=== PATIENT | female | born 1975 | race Caucasian/White ===

== ENCOUNTER 2017-04-17 10:29 | Inpatient (IN) | payer OTHER ==
[2017-04-17 11:06] VITALS: BMI 29.2
--- NOTE | 2017-04-17 14:41 | HP ---
COWS - Scale Resting Pulse: 0= [place] 80 or Below Sweatin=Flushed/Facial Moisture Restless Observation: 1= Difficult to Sit Still Pupil Size: 0= Normal to Room Light Bone or Joint Aches: 2= Severe Diffuse Aches Runny Nose/ Eye Tearin= Runny Nose/Eyes GI Upset > 30mins: 2= Nausea/Diarrhea Tremor Observation: 2= Slight Tremor Visible Yawning Observation: 2= >3x During Session Anxiety or Irritability: 2=Irritable/Anxious Goose Flesh Skin: 0=Smooth Skin COWS Score: 15 CIWA Score - CIWA Score Nausea/Vomitin-Mild Nausea/No Vomiting Muscle Tremors: 4-Moderate,w/Arms Extend Anxiety: 3 Agitation: 4-Moderately Restless Paroxysmal Sweats: 3 Orientation: 0-Oriented Tacttile Disturbances: 0-None Auditory Disturbances: 0-None Visual Disturbances: 0-None Headache: 1-Very Mild CIWA-Ar Total Score: 16 Admission ROS BHS - HPI Chief Complaint: I am here to detox. Allergies/Adverse Reactions: Allergies Allergy/AdvReac Type Severity Reaction Status Date / Time No Known Allergies Allergy Verified 04/17/17 11:23 History of Present Illness: pt is a 41yr old female with a history of alcohol, xanax and heroin dependence seeking detox for treatment. Exam Limitations: No Limitations - Ebola screening Have you traveled outside of the country in the last 21 days: No Have you had contact with anyone from an Ebola affected area: No Have you been sick,other than usual withdrawal symptoms: No Do you have a fever: No - Review of Systems Constitutional: Chills, Diaphoresis, Loss of Appetite, Night Sweats, Changes in sleep EENT: reports: Tearing, Nose Congestion Respiratory: reports: No Symptoms reported Cardiac: reports: No Symptoms Reported GI: reports: Poor Appetite, Poor Fluid Intake : reports: No Symptoms Reported Musculoskeletal: reports: Back Pain Integumentary: reports: Flushing, Sweating Neuro: reports: Headache, Tingling, Tremors Endocrine: reports: Excessive Sweating, Flushing, Intolerance to Cold, Intolerance to Heat Hematology: reports: No Symptoms Reported Psychiatric: reports: Judgement Intact, Mood/Affect Appropiate, Orientated x3, Agitated, Anxious Other Systems: Reviewed and Negative Patient History - Patient Medical History Hx Anemia: No Hx Asthma: No Hx Chronic Obstructive Pulmonary Disease (COPD): No Hx Cancer: No Hx Cardiac Disorders: No Hx Congestive Heart Failure: No Hx Hypertension: No Hx Hypercholesterolemia: No Hx Pacemaker: No HX Cerebrovascular Accident: No Hx Seizures: No Hx Dementia: No Hx Diabetes: No Hx Gastrointestinal Disorders: No Hx Liver Disease: No Hx Genitourinary Disorders: No Hx Sexually Transmitted Disorders: No Hx Renal Disease (ESRD): No Hx Thyroid Disease: No Hx Human Immunodeficiency Virus (HIV): No (negative) Hx Hepatitis C: No (negative) Hx Depression: Yes Hx Suicide Attempt: No (denies) Hx Bipolar Disorder: No Hx Schizophrenia: No - Patient Surgical History Past Surgical History: No Hx Neurologic Surgery: No Hx Cataract Extraction: No Hx Cardiac Surgery: No Hx Lung Surgery: No Hx Breast Surgery: No Hx Breast Biopsy: No Hx Abdominal Surgery: No Hx Appendectomy: No Hx Cholecystectomy: No Hx Genitourinary Surgery: No Hx Section: No Hx Orthopedic Surgery: No Anesthesia Reaction: No - PPD History Previous Implant?: Yes Documented Results: Negative w/o proof Implanted On Prior R Admission?: Yes PPD to be Administered?: No - Reproductive History Patient is a Female of Child Bearing Age (11 -55 yrs old): Yes Last Menstrual Period: 04/14/17 Patient : No - Smoking Cessation Smoking history: Current every day smoker Have you smoked in the past 12 months: Yes Aproximately how many cigarettes per day: 20 Cigars Per Day: 0 Hx Chewing Tobacco Use: No Initiated information on smoking cessation: Yes 'Breaking Loose' booklet given: 04/17/17 - Substance & Tx. History Hx Alcohol Use: Yes Hx Substance Use: Yes Substance Use Type: Alcohol, Heroin, Opiates, Tranquilizers Hx Substance Use Treatment: Yes (last detox 2013 at [facility]) - Substances Abused Heroin Route: Injection Frequency: Daily Amount used: 15 bags Age of first use: 30 Date of Last Use: 04/17/17 Alcohol-wine Route: Oral Frequency: Daily Amount used: 2 pts. Age of first use: 15 Date of Last Use: 04/16/17 Xanax Route: Oral Frequency: Daily Amount used: 8 mg. Age of first use: 12 Date of Last Use: 04/16/17 Family Disease History - Family Disease History Family Disease History: Diabetes: Grandparent Admission Physical Exam BHS - Vital Signs Vital Signs: Vital Signs - 24 hr 04/17/17 11:03 Temperature 97.9 F Pulse Rate 68 Respiratory 20 Rate Blood Pressure 116/66 - Physical General Appearance: Yes: Appropriately Dressed, Moderate Distress, Tremorous, Irritable, Sweating, Anxious HEENTM: Yes: Hearing grossly Normal, Normal Voice, Nasal Congestion, Rhinorrhea Respiratory: Yes: Lungs Clear, Normal Breath Sounds, No Respiratory Distress Neck: Yes: No masses,lesions,Nodules Breast: Yes: Within Normal Limits Cardiology: Yes: Regular Rhythm, Regular Rate, S1, S2 Abdominal: Yes: Normal Bowel Sounds, Non Tender, Soft Genitourinary: Yes: Within Normal Limits Back: Yes: Normal Inspection Musculoskeletal: Yes: full range of Motion, Back pain Extremities: Yes: Normal Capillary Refill, Normal Inspection, Non-Tender, Tremors Neurological: Yes: Fully Oriented, Alert, Normal Response Integumentary: Yes: Normal Color, Diaphoresis, Track Andrew Lymphatic: Yes: Within Normal Limits - Diagnostic (1) Nicotine dependence Current Visit: Yes Status: Chronic (2) Alcohol dependence with uncomplicated withdrawal Current Visit: Yes Status: Chronic (3) Opioid dependence with withdrawal Current Visit: Yes Status: Chronic (4) Sedative, hypnotic or anxiolytic dependence with withdrawal, uncomplicated Current Visit: Yes Status: Chronic Cleared for Admission [facility] - Detox or Rehab [facility] Level of Care: Medically Managed Detox Regimen/Protocol: Methadone/Librium [facility] Breath Alcohol Content Breath Alcohol Content: 0 Urine Pregancy Test - Result Urine Test Results: Negative- NO Line Present Urine Drug Screen - Results Drug Screen Negative: No Urine Drug Screen Results: SULEMA-Cocaine, OPI-Opiates, BZO-Benzodiazepines, MTD- Methadone
[2017-04-17] MEDS ORDERED: MAGNESIUM CITRATE 300 ML BOTTLE PO PRN (14:42)
[2017-04-17] MEDS ORDERED: MENTHOL/PHENOL 1 EACH UD MM PRN (14:42)
[2017-04-17] MEDS ORDERED: P-EPHED 60MG/TRIPROLIDI 2.5MG TABLET PO PRN (14:42)
[2017-04-17] MEDS ORDERED: MAGNESIUM HYDROX 2400MG/30ML ORAL SUSPENSION 30 ML CUP PO PRN (14:42)
[2017-04-17] MEDS ORDERED: MAG HYDROX/AL HYDROX/SIMETH 30 ML UNIT-DOSE CUP PO PRN (14:42)
[2017-04-17] MEDS ORDERED: guaiFENesin/D-METHORPHAN HB 10 ML UNIT-DOSE CUPS PO PRN (14:42)
[2017-04-17] MEDS ORDERED: METHADONE HCL 10 MG TABLET (FOR DETOX USE ONLY) PO ONE ×2 (15:15→23:00)
[2017-04-17] MEDS ORDERED: chlordiazePOXIDE HCL 25 MG CAPSULE PO ONE (15:15)
[2017-04-17] MEDS: chlordiazePOXIDE HCL 25 MG CAPSULE PO SCH ×2 (17:55→22:16)
[2017-04-17] MEDS: NICOTINE POLACRILEX 4 MG GUM BC PRN (17:57)
[2017-04-17] MEDS: chlordiazePOXIDE HCL 25 MG CAPSULE PO PRN (19:14)
[2017-04-17] MEDS: THIAMINE HCL 100 MG TABLET (FP) PO SCH (22:16)
[2017-04-17] MEDS: diphenhydrAMINE HCL 50 MG CAPSULE PO PRN (22:16)
[2017-04-17] MEDS: LOPERAMIDE HCL 2 MG CAPSULE PO PRN (22:18)
[2017-04-18] MEDS: chlordiazePOXIDE HCL 25 MG CAPSULE PO PRN ×2 (03:42→12:22)
[2017-04-18] MEDS: hydrOXYzine PAMOATE 50 MG CAPSULE (FP) PO PRN ×2 (03:42→14:59)
[2017-04-18] MEDS: TRIMETHOBENZAMIDE HCL 200MG/2ML INJ IM PRN ×2 (05:38→19:17)
[2017-04-18] MEDS: chlordiazePOXIDE HCL 25 MG CAPSULE PO SCH ×4 (06:35→22:17)
--- NOTE | 2017-04-18 09:05 | CONSULT ---
[facility] Psychiatric Consult - Data Date of interview: 04/18/17 Admission source: [facility] Identifying data: This is 41 years old female with no mpsychiatric hospitalization histopry intoxciated with: Alcohol, Nicotine, Xanax, Cannabis and Opioids Substance Abuse History: - Smoking Cessation. Smoking history: Current every day smoker. Have you smoked in the past 12 months: Yes. Aproximately how many cigarettes per day: 20. Cigars Per Day: 0. Hx Chewing Tobacco Use: No. Initiated information on smoking cessation: Yes. 'Breaking Loose' booklet given : 04/17/17. - Substance & Tx. History. Hx Alcohol Use: Yes. Hx Substance Use : Yes. Substance Use Type: Alcohol, Heroin, Opiates, Tranquilizers. Hx Substance Use Treatment: Yes (last detox 2013 at [facility]). - Substances Abused. Heroin. Route: Injection. Frequency: Daily. Amount used: 15 bags. Age of first use: 30. Date of Last Use: 04/17/17. Alcohol-wine. Route: Oral. Frequency: Daily. Amount used: 2 pts. Age of first use: 15. Date of Last Use: 04/16/17. Xanax. Route: Oral. Frequency: Daily. Amount used: 8 mg. Age of first use: 12. Date of Last Use: 04/16/17 Medical History: History of MMTP Psychiatric History: PATIENT REPORTS HISTORY OF DEPRESSION, DENIES PSYCHIATRIOC HOSPITAQLIZATION HJIOSTORY, REPORTS NO MEDICATIONS TAKING PRIOR TO ADMISSION Physical/Sexual Abuse/Trauma History: Denies Additional Comment: [facility] Mental Status Exam - Mental Status Exam Alert and Oriented to: Person Cognitive Function: Fair Patient Appearance: Unkempt Mood: Sad Affect: Mood Congruent Patient Behavior: Sedated Speech Pattern: Delayed Voice Loudness: Mildly Soft/Quiet Thought Process: Circumstantial Thought Disorder: Being Controlled Hallucinations: Denies Suicidal Ideation: Denies Homicidal Ideation: Denies Insight/Judgement: Fair Sleep: Difficulty falling asleep Appetite: Fair Muscle strength/Tone: Mild Hypotonicity Gait/Station: Shuffling Additional Comments: [facility]. [facility] Psychiatric Findings - Problem List ([place] 1, 2,3) (1) Alcohol dependence with uncomplicated withdrawal Current Visit: Yes Status: Chronic (2) Nicotine dependence Current Visit: Yes Status: Chronic (3) Opioid dependence with withdrawal Current Visit: Yes Status: Chronic (4) Sedative, hypnotic or anxiolytic dependence with withdrawal, uncomplicated Current Visit: Yes Status: Chronic (5) depression Current Visit: No Status: Active (6) Cannabis dependence Current Visit: No Status: Acute (7) Substance induced mood disorder Current Visit: No Status: Acute (8) Substance-induced sleep disorder Current Visit: No Status: Acute (9) Opioid dependence Current Visit: No Status: Chronic (10) Sedative dependence Current Visit: No Status: Chronic - Initial Treatment Plan Initial Treatment Plan: Observation. [facility] Care Protocol
[2017-04-18] MEDS ORDERED: METHADONE HCL 10 MG TABLET (FOR DETOX USE ONLY) PO SCH (10:00)
--- NOTE | 2017-04-18 10:19 | PN ---
BHS COWS - Scale Resting Pulse: 0= [place] 80 or Below Sweatin=Flushed/Facial Moisture Restless Observation: 1= Difficult to Sit Still Pupil Size: 0= Normal to Room Light Bone or Joint Aches: 2= Severe Diffuse Aches Runny Nose/ Eye Tearin= Runny Nose/Eyes GI Upset > 30mins: 3= Vomiting/Diarrhea Tremor Observation of Outstretched Hands: 2= Slight Tremor Visible Yawning Observation: 2= >3x During Session Anxiety or Irritability: 2=Irritable/Anxious Goose Flesh Skin: 3=Piloerection COWS Score: 19 S Progress Note (SOAP) Subjective: nausea vomiting sweats interrupted sleep agitation anxiety irritable teary eyes Objective: 04/18/17 10:18 Vital Signs Temperature 97.4 F L 04/18/17 05:59 Pulse Rate 67 04/18/17 05:59 Respiratory Rate 18 04/18/17 05:59 Blood Pressure 125/78 04/18/17 05:59 O2 Sat by Pulse Oximetry (%) labs pending awake/alert ambulating no acute distress Assessment: 04/18/17 10:18 withdrawal sx Plan: continue detox increase fluids tigan IM prn reglan po
[2017-04-18] MEDS: PRENATAL VITAMINS W/ FOLIC ACID TABLET (FP) PO SCH (10:42)
[2017-04-18] MEDS: METOCLOPRAMIDE HCL 10 MG TABLET (FP) PO SCH ×3 (10:43→22:17)
[2017-04-18] MEDS: LOPERAMIDE HCL 2 MG CAPSULE PO PRN (10:43)
[2017-04-18] MEDS: NICOTINE 21 MG/24 HOURS TOPICAL PATCH TD SCH (10:45)
--- NOTE | 2017-04-18 10:45 | EKG ---
Test Reason : Blood Pressure : / mmHG Vent. Rate : 071 BPM Atrial Rate : 071 BPM P-R Int : 156 ms QRS Dur : 080 ms QT Int : 376 ms P-R-T Axes : 066 072 029 degrees QTc Int : 408 ms NORMAL SINUS RHYTHM WITH SINUS ARRHYTHMIA POSSIBLE LEFT ATRIAL ENLARGEMENT BORDERLINE ECG NO PREVIOUS ECGS AVAILABLE Confirmed by PALOMO GUSTAFSON MD ([id number]) on 04/18/2017 10:45:23 AM Referred By: Confirmed By:PALOMO GUSTAFSON MD
[2017-04-18] MEDS ORDERED: TRIMETHOBENZAMIDE HCL 200MG/2ML INJ IM ONE (13:00)
[2017-04-18] MEDS: IBUPROFEN 400 MG TABLET (FP) PO PRN (14:59)
[2017-04-18] MEDS: ACETAMINOPHEN 325 MG TABLET (FP) PO PRN (16:47)
[2017-04-18] MEDS ORDERED: chlordiazePOXIDE HCL 25 MG CAPSULE PO SCH (17:00)
[2017-04-18] MEDS: THIAMINE HCL 100 MG TABLET (FP) PO SCH (22:17)
[2017-04-18] MEDS: diphenhydrAMINE HCL 50 MG CAPSULE PO PRN (22:17)
[2017-04-19] MEDS: chlordiazePOXIDE HCL 25 MG CAPSULE PO PRN ×2 (00:48→17:37)
[2017-04-19] MEDS: diphenhydrAMINE HCL 50 MG CAPSULE PO PRN (00:48)
[2017-04-19] MEDS: TRIMETHOBENZAMIDE HCL 200MG/2ML INJ IM PRN (03:28)
[2017-04-19] MEDS: METOCLOPRAMIDE HCL 10 MG TABLET (FP) PO SCH ×4 (06:01→22:16)
[2017-04-19] MEDS: chlordiazePOXIDE HCL 25 MG CAPSULE PO SCH ×2 (06:01→10:57)
[2017-04-19] MEDS: IBUPROFEN 400 MG TABLET (FP) PO PRN ×2 (08:43→19:46)
--- NOTE | 2017-04-19 09:19 | PN ---
Psychiatric Progress Note Vital Signs: Vital Signs Period Temp Pulse Resp BP Sys/Daniels Pulse Ox Last 24 Hr 98.1 F-100.9 F 66-92 16-18 124-144/72-92 Date of Session: 04/19/17 Chief Complaint:: Insomnia HPI: Patient reports severe insomnia, reports taking prior to admission Seroquel 300mg po qhs forn insomnia with good response Current Medications: Active Medications Generic Name Dose Route Start Last Admin Trade Name Freq PRN Reason Stop Dose Admin Acetaminophen 650 mg 04/17/17 14:42 04/18/17 16:47 Tylenol - PO 650 mg Q4H PRN Administration FEVER OR PAIN Al Hydroxide/Mg Hydroxide 30 ml 04/17/17 14:42 Mylanta Oral Suspension - PO Q6H PRN DYSPEPSIA Chlordiazepoxide HCl 10 mg 04/20/17 17:00 Librium - PO 04/21/17 11:01 [id number] PATRICIA Chlordiazepoxide HCl 25 mg 04/18/17 15:27 04/19/17 00:48 Librium - PO 04/20/17 14:43 25 mg Q4H PRN Administration WITHDRAWAL(CONT SUBST) Chlordiazepoxide HCl 25 mg 04/18/17 17:00 04/19/17 06:01 Librium - PO 04/19/17 11:01 25 mg [id number] PATRICIA Administration Chlordiazepoxide HCl 15 mg 04/19/17 17:00 Librium - PO 04/20/17 11:01 [id number] PATRICIA Diphenhydramine HCl 50 mg 04/17/17 14:42 04/19/17 00:48 Benadryl - PO 50 mg HSMR1 PRN Administration INSOMNIA Eucalyptus/Menthol/Phenol/Sorbitol 1 each 04/17/17 14:42 Cepastat Lozenge - MM Q4H PRN SORE THROAT Guaifenesin 10 ml 04/17/17 14:42 Robitussin Dm - PO Q6H PRN COUGH Hydroxyzine Pamoate 50 mg 04/17/17 14:42 04/18/17 14:59 Vistaril - PO 50 mg Q4H PRN Administration AGITATION Ibuprofen 400 mg 04/17/17 14:42 04/19/17 08:43 Motrin - PO 400 mg Q6H PRN Administration SEVERE PAIN Loperamide HCl 4 mg 04/17/17 14:42 04/18/17 10:43 Imodium - PO 4 mg Q6H PRN Administration DIARRHEA Magnesium Citrate 300 ml 04/17/17 14:42 Citroma - PO Q48H PRN CONSTIPATION Magnesium Hydroxide 30 ml 04/17/17 14:42 Milk Of Magnesia - PO DAILY PRN CONSTIPATION Methadone HCl 10 mg 04/21/17 10:00 Dolophine - PO 04/21/17 10:01 DAILY PATRICIA Methadone HCl 15 mg 04/19/17 10:00 Dolophine - PO 04/20/17 10:01 DAILY PATRICIA Methadone HCl 5 mg 04/22/17 06:00 Dolophine - PO 04/22/17 06:01 DAILY@0600 PATRICIA Metoclopramide HCl 10 mg 04/18/17 11:00 04/19/17 06:01 Reglan - PO 10 mg ACHS PATRICIA Administration Nicotine 21 mg 04/18/17 10:00 04/18/17 10:45 Nicoderm Patch - TD 21 mg DAILY PATRICIA Administration Nicotine Polacrilex 4 mg 04/17/17 14:42 04/17/17 17:57 Nicorette Gum - BC 4 mg Q2H PRN Administration NICOTINE REPLACEMENT RX Multivit/Folic Acid/Iron 1 tab 04/18/17 10:00 04/18/17 10:42 Vitamins (Sjr) - PO 1 tab DAILY PATRICIA Administration Pseudoephedrine/Triprolidine 1 combo 04/17/17 14:42 Actifed - PO TID PRN NASAL CONGESTION Thiamine HCl 100 mg 04/17/17 22:00 04/18/17 22:17 Vitamin B1 - PO 100 mg HS PATRICIA Administration Trimethobenzamide HCl 200 mg 04/18/17 05:22 04/19/17 03:28 Tigan Injection - IM 200 mg Q8H PRN Administration NAUSEA Medication(s) Change(s): Seroquel 300mg po qhs Psychiatric Treatment Plan - Problem List (1) Alcohol dependence with uncomplicated withdrawal Current Visit: Yes (2) Nicotine dependence Current Visit: Yes (3) Opioid dependence with withdrawal Current Visit: Yes (4) Sedative, hypnotic or anxiolytic dependence with withdrawal, uncomplicated Current Visit: Yes (5) depression Current Visit: No (6) Cannabis dependence Current Visit: No (7) Substance induced mood disorder Current Visit: No (8) Substance-induced sleep disorder Current Visit: No (9) Opioid dependence Current Visit: No (10) Sedative dependence Current Visit: No
[2017-04-19 10:16] LABS: URINE APPEARANCE SLCLOUDY; URINE BILIRUBIN NEGATIVE (NEGATIVE); URINE BLOOD NEGATIVE (NEGATIVE); URINE COLOR YELLOW; URINE GLUCOSE (UA) NEGATIVE (NEGATIVE); URINE KETONE TRACE (NEGATIVE); URINE LEUK ESTERASE NEGATIVE (NEGATIVE); URINE NITRITE NEGATIVE (NEGATIVE); URINE PROTEIN NEGATIVE (NEGATIVE); URINE UROBILINOGEN NEGATIVE mg/dL (0.2-1.0)
[2017-04-19] MEDS: METHADONE HCL 5 MG TABLET (FOR DETOX USE ONLY) PO SCH (10:57)
[2017-04-19] MEDS: PRENATAL VITAMINS W/ FOLIC ACID TABLET (FP) PO SCH (10:57)
[2017-04-19] MEDS: NICOTINE 21 MG/24 HOURS TOPICAL PATCH TD SCH (10:58)
--- NOTE | 2017-04-19 12:30 | PN ---
S CIWA - CIWA Score Nausea/Vomitin Muscle Tremors: 4-Moderate,w/Arms Extend Anxiety: 4-Mod. Anxious/Guarded Agitation: 4-Moderately Restless Paroxysmal Sweats: 3 Orientation: 0-Oriented Tacttile Disturbances: 0-None Auditory Disturbances: 0-None Visual Disturbances: 0-None Headache: 0-None Present CIWA-Ar Total Score: 18 BHS COWS - Scale Resting Pulse: 0= [place] 80 or Below Sweatin= Chills/Flushing Restless Observation: 1= Difficult to Sit Still Pupil Size: 1= Pupils >than Normal Bone or Joint Aches: 1= Mild Discomfort Runny Nose/ Eye Tearin= Nasal Congestion GI Upset > 30mins: 2= Nausea/Diarrhea Tremor Observation of Outstretched Hands: 2= Slight Tremor Visible Yawning Observation: 1= 1-2x During Session Anxiety or Irritability: 2=Irritable/Anxious Goose Flesh Skin: 3=Piloerection COWS Score: 15 BHS Progress Note (SOAP) Subjective: nausea, sweat, interrupted sleep, anxiety, tremors Objective: 04/19/17 12:29 Vital Signs - 8 hr 04/19/17 04/19/17 06:51 10:19 Temperature 99.5 F 98.2 F Pulse Rate 66 64 Respiratory 16 18 Rate Blood Pressure 144/79 119/60 Laboratory Tests 04/19/17 07:00 Urine Color Yellow Urine Appearance Slcloudy Urine pH 5.0 Urine Protein Negative Urine Glucose (UA) Negative Urine Ketones Trace H Urine Blood Negative Urine Nitrite Negative Urine Bilirubin Negative Urine Urobilinogen Negative Ur Leukocyte Esterase Negative labs pending Assessment: 04/19/17 12:30 withdrawal sx Plan: cont detox
[2017-04-19] MEDS: CLOTRIMAZOLE 1% CREAM 15 GM TUBE TP SCH ×2 (12:59→22:17)
[2017-04-19] MEDS: ACETAMINOPHEN 325 MG TABLET (FP) PO PRN ×2 (13:46→21:07)
[2017-04-19] MEDS ORDERED: chlordiazePOXIDE 5 MG CAPSULE PO SCH (17:00)
[2017-04-19] MEDS: chlordiazePOXIDE 5 MG CAPSULE PO SCH ×2 (18:08→22:16)
[2017-04-19] MEDS: NICOTINE POLACRILEX 4 MG GUM BC PRN (19:46)
[2017-04-19] MEDS: hydrOXYzine PAMOATE 50 MG CAPSULE (FP) PO PRN (19:47)
[2017-04-19] MEDS: THIAMINE HCL 100 MG TABLET (FP) PO SCH (22:16)
[2017-04-19] MEDS: QUEtiapine FUMARATE 300 MG TABLET PO SCH (22:16)
[2017-04-20] MEDS: chlordiazePOXIDE 5 MG CAPSULE PO SCH ×2 (05:55→10:41)
[2017-04-20] MEDS: METOCLOPRAMIDE HCL 10 MG TABLET (FP) PO SCH ×4 (07:49→22:10)
[2017-04-20 09:51] LABS: BASOPHIL 0.4 % (0-2.0); EOSINOPHIL 0.1 % (0-4.5); MCH 31.1 pg (25.7-33.7); MCHC 34.1 g/dl (32.0-36.0); MEAN CELL VOLUME 91.3 fl (80-96); MEAN PLT VOLUME 7.2 fl (7.5-11.1); NEUTROPHILS 61.8 % (42.8-82.8); PLATELET COUNT 283 K/MM3 (134-434); RDW 13.5 % (11.6-15.6); WHITE BLOOD COUNT 9.7 K/mm3 (4.0-10.0)
--- NOTE | 2017-04-20 09:56 | PN ---
BHS Progress Note (SOAP) Subjective: nausea, sweats, interrupted sleep, anxiety, tremors Objective: 04/20/17 09:55 Vital Signs - 24 hr 04/19/17 04/19/17 04/19/17 10:19 14:20 20:27 Temperature 98.2 F 99.7 F H 98.1 F Pulse Rate 64 97 H 61 Respiratory 18 18 18 Rate Blood Pressure 119/60 110/87 110/69 04/19/17 04/20/17 04/20/17 21:34 00:30 03:30 Temperature 100.0 F H Pulse Rate 75 Respiratory 20 18 18 Rate Blood Pressure 150/74 Laboratory Tests 04/19/17 07:00 Urine Color Yellow Urine Appearance Slcloudy Urine pH 5.0 Ur Specific [place] 1.020 Urine Protein Negative Urine Glucose (UA) Negative Urine Ketones Trace H Urine Blood Negative Urine Nitrite Negative Urine Bilirubin Negative Urine Urobilinogen Negative Ur Leukocyte Esterase Negative labs pending Assessment: 04/20/17 09:56 withdrawal sx Plan: cont detox
[2017-04-20] MEDS: PRENATAL VITAMINS W/ FOLIC ACID TABLET (FP) PO SCH (10:41)
[2017-04-20] MEDS: METHADONE HCL 5 MG TABLET (FOR DETOX USE ONLY) PO SCH (10:42)
[2017-04-20] MEDS: CLOTRIMAZOLE 1% CREAM 15 GM TUBE TP SCH ×2 (10:42→22:12)
[2017-04-20] MEDS: NICOTINE 21 MG/24 HOURS TOPICAL PATCH TD SCH (10:42)
[2017-04-20] MEDS: hydrOXYzine PAMOATE 50 MG CAPSULE (FP) PO PRN (10:46)
[2017-04-20] MEDS: IBUPROFEN 400 MG TABLET (FP) PO PRN (10:46)
[2017-04-20 10:47] LABS: ALBUMIN 3.6 g/dl (3.4-5.0); ANION GAP 9 (8-16); CALCIUM 8.8 mg/dL (8.5-10.1); CO2 27 mmol/L (21-32); CREATININE 0.8 mg/dL (0.55-1.02); GLUCOSE,RANDOM 91 mg/dL (74-106); SGOT/AST 17 U/L (15-37); SGPT/ALT 19 U/L (12-78)
[2017-04-20 10:49] LABS: ALK PHOS 69 U/L (45-117); BILIRUBIN,TOTAL 0.7 mg/dL (0.2-1.0); TOT PROT 7.2 g/dl (6.4-8.2)
[2017-04-20] MEDS ORDERED: chlordiazePOXIDE HCL 10 MG CAPSULE PO SCH (17:00)
[2017-04-20] MEDS: chlordiazePOXIDE HCL 10 MG CAPSULE PO SCH ×2 (17:01→22:10)
[2017-04-20] MEDS: LOPERAMIDE HCL 2 MG CAPSULE PO PRN (19:26)
[2017-04-20] MEDS: QUEtiapine FUMARATE 300 MG TABLET PO SCH (22:10)
[2017-04-20] MEDS: THIAMINE HCL 100 MG TABLET (FP) PO SCH (22:10)
[2017-04-21] MEDS: chlordiazePOXIDE HCL 10 MG CAPSULE PO SCH ×2 (05:21→10:30)
[2017-04-21] MEDS: METOCLOPRAMIDE HCL 10 MG TABLET (FP) PO SCH ×4 (07:30→22:36)
[2017-04-21] MEDS ORDERED: METHADONE HCL 10 MG TABLET (FOR DETOX USE ONLY) PO SCH (10:00)
[2017-04-21] MEDS: PRENATAL VITAMINS W/ FOLIC ACID TABLET (FP) PO SCH (10:30)
[2017-04-21] MEDS: CLOTRIMAZOLE 1% CREAM 15 GM TUBE TP SCH ×2 (10:30→22:36)
[2017-04-21] MEDS: NICOTINE 21 MG/24 HOURS TOPICAL PATCH TD SCH (10:31)
--- NOTE | 2017-04-21 11:13 | PN ---
BHS Progress Note (SOAP) Subjective: shakes, chills, N/D back pain Objective: 04/21/17 11:12 Vital Signs - 8 hr 04/21/17 04/21/17 04/21/17 03:30 06:32 10:00 Temperature 97.6 F 98.1 F Pulse Rate 70 71 Respiratory 18 18 16 Rate Blood Pressure 101/57 140/74 Laboratory Last Values WBC 9.7 K/mm3 (4.0-10.0) 04/20/17 07:00 RBC 4.93 M/mm3 (3.60-5.2) 04/20/17 07:00 Hgb 15.4 GM/dL (10.7-15.3) H 04/20/17 07:00 Hct 45.0 % (32.4-45.2) 04/20/17 07:00 MCV 91.3 fl (80-96) 04/20/17 07:00 MCH 31.1 pg (25.7-33.7) 04/20/17 07:00 MCHC 34.1 g/dl (32.0-36.0) 04/20/17 07:00 RDW 13.5 % (11.6-15.6) 04/20/17 07:00 Plt Count 283 K/MM3 (134-434) 04/20/17 07:00 MPV 7.2 fl (7.5-11.1) L 04/20/17 07:00 Neutrophils % 61.8 % (42.8-82.8) 04/20/17 07:00 Lymphocytes % 31.6 % (8-40) 04/20/17 07:00 Monocytes % 6.1 % (3.8-10.2) 04/20/17 07:00 Eosinophils % 0.1 % (0-4.5) 04/20/17 07:00 Basophils % 0.4 % (0-2.0) 04/20/17 07:00 Sodium 141 mmol/L (136-145) 04/20/17 07:00 Potassium 3.7 mmol/L (3.5-5.1) 04/20/17 07:00 Chloride 105 mmol/L (98-107) 04/20/17 07:00 Carbon Dioxide 27 mmol/L (21-32) 04/20/17 07:00 Anion Gap 9 (8-16) 04/20/17 07:00 BUN 13 mg/dL (7-18) 04/20/17 07:00 Creatinine 0.8 mg/dL (0.55-1.02) 04/20/17 07:00 Creat Clearance w eGFR > 60 (>60) 04/20/17 07:00 Random Glucose 91 mg/dL (74-106) D 04/20/17 07:00 Calcium 8.8 mg/dL (8.5-10.1) 04/20/17 07:00 Total Bilirubin 0.7 mg/dL (0.2-1.0) D 04/20/17 07:00 AST 17 U/L (15-37) 04/20/17 07:00 ALT 19 U/L (12-78) D 04/20/17 07:00 Alkaline Phosphatase 69 U/L (45-117) 04/20/17 07:00 Total Protein 7.2 g/dl (6.4-8.2) 04/20/17 07:00 Albumin 3.6 g/dl (3.4-5.0) 04/20/17 07:00 Urine Color Yellow 04/19/17 07:00 Urine Appearance Slcloudy 04/19/17 07:00 Urine pH 5.0 (5.0-8.0) 04/19/17 07:00 Ur Specific [place] 1.020 (1.005-1.025) 04/19/17 07:00 Urine Protein Negative (NEGATIVE) 04/19/17 07:00 Urine Glucose (UA) Negative (NEGATIVE) 04/19/17 07:00 Urine Ketones Trace (NEGATIVE) H 04/19/17 07:00 Urine Blood Negative (NEGATIVE) 04/19/17 07:00 Urine Nitrite Negative (NEGATIVE) 04/19/17 07:00 Urine Bilirubin Negative (NEGATIVE) 04/19/17 07:00 Urine Urobilinogen Negative mg/dL (0.2-1.0) 04/19/17 07:00 Ur Leukocyte Esterase Negative (NEGATIVE) 04/19/17 07:00 RPR Titer Nonreactive (NONREACTIVE) 04/20/17 07:00 labs noted Assessment: 04/21/17 11:12 withdrawal sx Plan: continue detox
[2017-04-21] MEDS: hydrOXYzine PAMOATE 50 MG CAPSULE (FP) PO PRN (14:35)
[2017-04-21] MEDS: ACETAMINOPHEN 325 MG TABLET (FP) PO PRN (16:47)
[2017-04-21] MEDS: THIAMINE HCL 100 MG TABLET (FP) PO SCH (22:36)
[2017-04-21] MEDS: QUEtiapine FUMARATE 300 MG TABLET PO SCH (22:36)
[2017-04-22] MEDS ORDERED: METHADONE HCL 5 MG TABLET (FOR DETOX USE ONLY) PO SCH (06:00)
[2017-04-22] MEDS: METOCLOPRAMIDE HCL 10 MG TABLET (FP) PO SCH (06:16)
[2017-04-22 06:32] VITALS: TEMP 98.1
[2017-04-22 10:35] VITALS: BP 132/91; PULSE 70
--- NOTE | 2017-04-24 08:48 | DS ---
[facility] Detox Discharge Summary Admission Date: 04/17/17 Discharge Date: 04/22/17 - History Present History: Alcohol Dependence, Cannabis Dependence, Opioid Dependence, Sedative Dependence Pertinent Past History: Denies - Physical Exam Results Vital Signs: Vital Signs Temperature 98.1 F 04/22/17 10:00 Pulse Rate 70 04/22/17 10:00 Respiratory Rate 18 04/22/17 10:00 Blood Pressure 132/91 04/22/17 10:00 O2 Sat by Pulse Oximetry (%) Pertinent Admission Physical Exam Findings: Withdrawal sx. Laboratory Last Values WBC 9.7 K/mm3 (4.0-10.0) 04/20/17 07:00 RBC 4.93 M/mm3 (3.60-5.2) 04/20/17 07:00 Hgb 15.4 GM/dL (10.7-15.3) H 04/20/17 07:00 Hct 45.0 % (32.4-45.2) 04/20/17 07:00 MCV 91.3 fl (80-96) 04/20/17 07:00 MCH 31.1 pg (25.7-33.7) 04/20/17 07:00 MCHC 34.1 g/dl (32.0-36.0) 04/20/17 07:00 RDW 13.5 % (11.6-15.6) 04/20/17 07:00 Plt Count 283 K/MM3 (134-434) 04/20/17 07:00 MPV 7.2 fl (7.5-11.1) L 04/20/17 07:00 Neutrophils % 61.8 % (42.8-82.8) 04/20/17 07:00 Lymphocytes % 31.6 % (8-40) 04/20/17 07:00 Monocytes % 6.1 % (3.8-10.2) 04/20/17 07:00 Eosinophils % 0.1 % (0-4.5) 04/20/17 07:00 Basophils % 0.4 % (0-2.0) 04/20/17 07:00 Sodium 141 mmol/L (136-145) 04/20/17 07:00 Potassium 3.7 mmol/L (3.5-5.1) 04/20/17 07:00 Chloride 105 mmol/L (98-107) 04/20/17 07:00 Carbon Dioxide 27 mmol/L (21-32) 04/20/17 07:00 Anion Gap 9 (8-16) 04/20/17 07:00 BUN 13 mg/dL (7-18) 04/20/17 07:00 Creatinine 0.8 mg/dL (0.55-1.02) 04/20/17 07:00 Creat Clearance w eGFR > 60 (>60) 04/20/17 07:00 Random Glucose 91 mg/dL (74-106) D 04/20/17 07:00 Calcium 8.8 mg/dL (8.5-10.1) 04/20/17 07:00 Total Bilirubin 0.7 mg/dL (0.2-1.0) D 04/20/17 07:00 AST 17 U/L (15-37) 04/20/17 07:00 ALT 19 U/L (12-78) D 04/20/17 07:00 Alkaline Phosphatase 69 U/L (45-117) 04/20/17 07:00 Total Protein 7.2 g/dl (6.4-8.2) 04/20/17 07:00 Albumin 3.6 g/dl (3.4-5.0) 04/20/17 07:00 Urine Color Yellow 04/19/17 07:00 Urine Appearance Slcloudy 04/19/17 07:00 Urine pH 5.0 (5.0-8.0) 04/19/17 07:00 Ur Specific [place] 1.020 (1.005-1.025) 04/19/17 07:00 Urine Protein Negative (NEGATIVE) 04/19/17 07:00 Urine Glucose (UA) Negative (NEGATIVE) 04/19/17 07:00 Urine Ketones Trace (NEGATIVE) H 04/19/17 07:00 Urine Blood Negative (NEGATIVE) 04/19/17 07:00 Urine Nitrite Negative (NEGATIVE) 04/19/17 07:00 Urine Bilirubin Negative (NEGATIVE) 04/19/17 07:00 Urine Urobilinogen Negative mg/dL (0.2-1.0) 04/19/17 07:00 Ur Leukocyte Esterase Negative (NEGATIVE) 04/19/17 07:00 RPR Titer Nonreactive (NONREACTIVE) 04/20/17 07:00 labs noted - Treatment Hospital Course: Detox Protocol Followed, Detoxed Safely, Responded well, Discharged Condition Good, Rehab Referral Accepted Patient has Accepted a Rehab Referral to: Self Help groups - Medication Discharge Medications: Ambulatory Orders Quetiapine Fumarate [Seroquel -] 300 mg PO HS #30 tab 04/19/17 - Diagnosis (1) Cannabis dependence Status: Acute (2) Alcohol dependence with uncomplicated withdrawal Status: Acute (3) Opioid dependence with withdrawal Status: Acute (4) Sedative, hypnotic or anxiolytic dependence with withdrawal, uncomplicated Status: Acute (5) depression Status: Active (6) Substance induced mood disorder Status: Acute (7) Substance-induced sleep disorder Status: Acute - AMA Did Patient Leave Against Medical Advice: No
== END 2017-04-22 09:46 | disposition home or self-care (01) | DRG 773 ==
LOC: YASAS 10:29 → Y6N 14:35
PROVIDERS: ADMIT Internal Medicine Addiction Medicine; ATTEND Internal Medicine Addiction Medicine
PROC: HZ2ZZZZ Detoxification Services for Substance Abuse Treatment (ICD-10-PCS; principal; 2017-04-17)
DX: F11.23 Opioid dependence with withdrawal (principal); F10.230 Alcohol dependence with withdrawal, uncomplicated; F13.230 Sedative, hypnotic or anxiolytic dependence with withdrawal, uncomplicated; F12.20 Cannabis dependence, uncomplicated; F17.210 Nicotine dependence, cigarettes, uncomplicated; F19.24 Other psychoactive substance dependence with psychoactive substance-induced mood disorder; F19.282 Other psychoactive substance dependence with psychoactive substance-induced sleep disorder; F32.9 Major depressive disorder, single episode, unspecified
CPT/HCPCS: 36415; 80053; 81003; 85025; 86593; 93005; 93010